=== PATIENT | female | born 1935 | race Two or more races ===

== ENCOUNTER 2020-05-01 19:07 | Emergency (ER) | payer OTHER ==
[~2020-05-01] VITALS: Ht 157.5 cm; Wt 36.3 kg
[~2020-05-01 19:07] MED LIST: ARICEPT5 MG; CLOPIDOGREL BIS75 MG; CLORAZEPATE DI7.5 MG; COZAAR50 MG; GABAPENTIN100 MG; INDAPAMIDE1.25 MG; LEVAQUIN500 MG; PANTOPRAZOLE SO40 MG; PRESERVISION SO1 CAP; SINGULAIR 10MG10 MG
== END 2020-05-02 16:25 | disposition home or self-care (01) ==
LOC: ER 19:07
DX: E86.0 Dehydration (principal); I95.89 Other hypotension; N39.0 Urinary tract infection, site not specified; D64.89 Other specified anemias; R53.1 Weakness; L89.153 Pressure ulcer of sacral region, stage 3; L89.222 Pressure ulcer of left hip, stage 2; L89.112 Pressure ulcer of right upper back, stage 2; L89.212 Pressure ulcer of right hip, stage 2; B96.29 Other Escherichia coli [E. coli] as the cause of diseases classified elsewhere; B95.2 Enterococcus as the cause of diseases classified elsewhere; R31.29 Other microscopic hematuria; G30.8 Other Alzheimer's disease; F02.80 Dementia in other diseases classified elsewhere, unspecified severity, without behavioral disturbance, psychotic disturbance, mood disturbance, and anxiety; Z03.818 Encounter for observation for suspected exposure to other biological agents ruled out; Z74.01 Bed confinement status